=== PATIENT | male | born 1970 | race Two or more races ===

== ENCOUNTER 2018-06-09 10:45 | Emergency (ER) | payer SELFPAY ==
[~2018-06-09] VITALS: Ht 167.6 cm; Wt 97.4 kg
[2018-06-09 10:59] VITALS: BP 165/100
[2018-06-09] MEDS ORDERED: LIDOCAINE-MPF 1%, 2ML ONE (11:27)
[2018-06-09] MEDS ORDERED: DIPH,PERTUSS(ACELL),TET VAC/PF 0.5 ML IM-VACC ONE ×2 (11:27→11:30)
[2018-06-09] MEDS ORDERED: LIDOCAINE-MPF 1%, 5ML INFIL ONE (11:30)
[2018-06-09] MEDS ORDERED: BACITRACIN ZINC OINT 500U/GM, 0.9 GM ONE (12:03)
[2018-06-09] MEDS ORDERED: IBUPROFEN 200 MG TABLET ONE (12:11)
[2018-06-09] MEDS ORDERED: IBUPROFEN 200 MG TABLET PO ONE (12:30)
== END 2018-06-09 12:29 | disposition home or self-care (01) ==
LOC: ED 12:25
DX: S01.412A Laceration without foreign body of left cheek and temporomandibular area, initial encounter (principal); I10 Essential (primary) hypertension; W17.89XA Other fall from one level to another, initial encounter; Y93.89 Activity, other specified; Y92.69 Other specified industrial and construction area as the place of occurrence of the external cause; Y99.8 Other external cause status
CPT/HCPCS: 12011; 90471; 90715